=== PATIENT | female | born 1955 | race Caucasian/White ===

== ENCOUNTER 2017-04-16 17:05 | Emergency (ER) | payer OTHER ==
[~2017-04-16] VITALS: Ht 172.7 cm; Wt 73.6 kg
[~2017-04-16 17:05] MED LIST: ASCO500C PO; ASPI81TA82 PO; CIPR500T4 PO; CLOP75 PO; GABA100C4 PO; GLIP5TAB15 PO; LOPI600T PO; METF500 PO; OMEG306C PO; PENT400 PO; PENT400T19 PO; PLAV75TA PO; POTA550T4 PO; ROPI2TAB23 PO; ROPI4TAB PO; VITA250L PO; ZOFR4TAB3 SL
[2017-04-16 17:07] VITALS: BP 124/80; PULSE 121; RESP 16; TEMP 98.4; O2SAT 94
[2017-04-16] MEDS ORDERED: PLAV75TA29 PO (17:21)
[2017-04-16] MEDS ORDERED: GABA600T PO (17:21)
--- NOTE | 2017-04-16 17:27 | PD ---
HPI Chief Complaint: Fall Time Seen by Provider: 17:18 Travel History International Travel<30 days: No Contact w/Intl Traveler<30days: No Traveled to known affect area: No History of Present Illness HPI Patient comes emergency Department complaining of left knee pain status post slip and fall while at work shortly prior to arrival. Patient denies any direct trauma to the left knee and just feels as though it gave out on her when she fell landing on her bottom. Patient has not been able to apply pressure in her left leg since secondary to pain. Patient describes a sharp stabbing pain in her knee anterior aspect radiates to the back. Denies any numbness or tingling. Denies hitting her head, loss consciousness, or doing anything for this prior to coming to the emergency department. Moving her left extremity improves the pain. Moving it touching her knee, or trying to apply pressure makes the pain worse. PFSH Past Medical History Hx Anticoagulant Therapy: Yes (Plavix) Cancer: No Cardiac Catheterization: Yes Cardiovascular Problems: Yes (Stents BLE) Chest Pain: No COPD: Yes Coronary Artery Disease: Yes Diabetes: Yes Patient Takes Glucophage: No Diminished Hearing: No Deep Vein Thrombosis: Yes Gastrointestinal Disorders: No Glaucoma: Yes Hepatitis: No Hiatal Hernia: No Hypertension: No Respiratory: Yes (COPD) Integumentary: No Immunizations Current: No Thyroid Disease: No Influenza Vaccination: No ?: Not Menopausal: Yes Past Surgical History Cardiac Surgery: Yes (Fem-pop Bypass ) Section: Yes Coronary Stent: Yes Gynecologic Surgery: Yes (C- SECTION X 1 ) Thoracic Surgery: Yes Tonsillectomy: Yes Other Surgery: Yes (removal of cyst , facial reconstruction due to trauma ) Social History Alcohol Use: No Tobacco Use: Yes Substance Use: No Allergies-Medications (Allergen,Severity, Reaction): Coded Allergies: Sulfa (Sulfonamide Antibiotics) (Unverified Allergy, Severe, ITCHING, ) penicillin G (Unverified Allergy, Severe, ITCHING, 04/16/17) Reported Meds & Prescriptions Reported Meds & Active Scripts Active Gackle (Hydrocodone-Acetaminophen) 5 Mg-325 Mg Tab 1 Tab PO Q8HR PRN Reported Gabapentin 600 Mg Tab 600 Mg PO HS Plavix (Clopidogrel Bisulfate) 75 Mg Tab 75 Mg PO HS Review of Systems Except as stated in HPI: all other systems reviewed are Neg Physical Exam Narrative GENERAL: Well-developed, well nourished, in no acute distress, and non-ill appearing. SKIN: Focused skin assessment warm and dry. HEAD: Atraumatic. Normocephalic. EYES: Pupils equal and round. EOMI. No scleral icterus. No injection or drainage. ENT: No nasal bleeding or discharge. Mucous membranes pink and moist. NECK: Trachea midline. Supple. No nuclear rigidity. CARDIOVASCULAR: Dorsal pulses 2+, intact, equal bilaterally. Capillary refill less than 2 seconds. RESPIRATORY: No accessory muscle use. No respiratory distress. MUSCULOSKELETAL: No obvious deformities. No clubbing. No cyanosis. No edema. Decreased range of motion left lower extremity secondary to pain. Knee: Negative patellar apprehension, varus and valgus maneuvers, anterior draw test, and Lisa test. Pulses equal BL distal to injury. Capillary refill less than 2 seconds distal to injury and equal BL. FROM distal to injury and equal BL. Strength distal to injury equal BL. NV intact distal to injury. Dorsal pulses equal BL. Sensation equal BL 1st web space. Small joint effusion noted over anterior aspect of the left knee is tender to palpation. Patient reports point tenderness to left hip. No pain with passive motion of left hip. NEUROLOGICAL: Awake and alert. No obvious cranial nerve deficits. Motor grossly within normal limits. Normal speech. PSYCHIATRIC: Appropriate mood and affect; insight and judgment normal. Data Data Last Documented VS Vital Signs Date Time Temp Pulse Resp B/P (MAP) Pulse Ox O2 Delivery O2 Flow Rate FiO2 04/16/17 17:07 98.4 121 16 124/80 (95) 94 Orders Orders Hip, Uni(Ap&Lat) W Ap Pelvis (04/16/17 ) Knee, Complete (4vws) (04/16/17 ) Ice/Cold Pack (04/16/17 17:25) Acetamin-Hydrocod 325-5 Mg (Gackle 5-325 (04/16/17 17:30) Ct Knee W/O Contrast (04/16/17 ) Splint Or Brace Apply/Monitor (04/16/17 19:41) Crutches (04/16/17 20:00) Ed Discharge Order (04/16/17 20:05) Immobilizer Knee 20 Inch (04/16/17 ) MDM Medical Decision Making Medical Screen Exam Complete: Yes Emergency Medical Condition: Yes Interpretation(s) Last Impressions Lower Extremity CT 04/16/17 0000 Signed Impressions: Service Date/Time: Sunday, April 16, 2017 19:09 - CONCLUSION: Acute, minimally depressed/downsloping lateral tibial plateau fracture without significant focal step-off or incongruity. Moris Maldonado MD Knee X-Ray 04/16/17 0000 Signed Impressions: Service Date/Time: Sunday, April 16, 2017 18:09 - CONCLUSION: Possible slightly depressed lateral tibial plateau fracture. Otherwise intact left knee. Joint effusion present. Moris Maldonado MD Hip and Pelvis X-Ray 04/16/17 0000 Signed Impressions: Service Date/Time: Sunday, April 16, 2017 18:09 - CONCLUSION: Intact pelvis and left hip. Moris Maldonado MD Differential Diagnosis Fracture, strain, contusion, dislocation Narrative Course The patient sustained a fracture. The distal extremity appears neurovascularly intact, without evidence of neurovascular injury nor compartment syndrome. Tendon exam also was intact. The effected limb was splinted. The patient was discharged on pain medication along with fracture and splint care instructions and given warnings for vascular compromise. The patient is to follow up with Orthopedics. The patient agrees with plan. Patient in no obvious distress upon re-evaluation. All pertinent Radiology result(s) discussed with patient/family. Patient states she prefers crutches over a walker. Patient was asked if they wanted to speak to my attending, which the patient did not wish to do at this time. Any questions/concerns in reference to patient diagnosis/condition discussed and clarified prior to patient's discharge. Reinforced sheer importance of close follow up with patient 's Workmen's Comp. provider and/or orthopedics as well as to be nonweightbearing on her left lower extremity. Instructed patient to return to ED immediately, if symptoms return/worsen. Patient showed understanding of above instructions. Further instructions and recommendations were detailed in discharge paperwork. Patient left without difficulty out of ED at discharge. Physician Communication Physician Communication [address] Umanzor, orthopedic bridge ironworker recommends knee immobilizer, nonweightbearing, and outpatient follow-up. Diagnosis Primary Impression: Tibial plateau fracture, left Qualified Codes: S82.142A - Displaced bicondylar fracture of left tibia, initial encounter for closed fracture Referrals: Jose Umanzor MD Patient Instructions: Crutch Instructions (ED), General Instructions, Knee Immobilizer (DC), Leg Fracture (ED) Additional Instructions: Follow-up with your workmen's comp provider and orthopedic this week.. Take all medication as prescribed. Apply ice affected area 20 minutes per hour's needed for pain. Do not put any weight on your left lower extremity until cleared by the orthopedic. Immobilizer until cleared by orthopedic. Return to the emergency department if symptoms get worse. Med/Other Pt SpecificInfo: Prescription(s) given Scripts Hydrocodone-Acetaminophen (Gackle) 5 Mg-325 Mg Tab 1 TAB PO Q8HR Y for PAIN GREATER THAN 7, #12 TAB 0 Refills Prov: Raghav Anna MD 04/16/17 Disposition: 01 DISCHARGE HOME Condition: Stable Royce Medina Apr 16, 2017 17:27
[2017-04-16] MEDS ORDERED: ACETAMINOPHEN/HYDROcodone 325 MG/5 MG TAB PO ONE (17:30)
--- NOTE | 2017-04-16 18:26 | RADRPT ---
EXAM DATE/TIME: 04/16/2017 18:09 [facility] COMPARISON: No previous studies available for comparison. INDICATIONS : Left hip pain. Patient fell today. MEDICAL HISTORY : None. SURGICAL HISTORY : None. ENCOUNTER: Initial ACUITY: 1 day PAIN SCORE: 5/10 LOCATION: Left hip. FINDINGS: Examination of the left hip was performed with AP Pelvis. The primary and secondary trabecular patte rn of the femoral neck is intact. The hip joint is of normal width without significant sclerosis or bony hypertrophy. The acetabulum is grossly intact. There does appear to be some soft tissue swelling lateral to the greater trochanter. No radiopaque fo reign body demonstrated. CONCLUSION: Intact pelvis and left hip. Moris Maldonado MD on April 16, 2017 at 18:22 Board Certified Radiologist. This report was verified electronically.
--- NOTE | 2017-04-16 18:28 | RADRPT ---
EXAM DATE/TIME: 04/16/2017 18:09 [facility] COMPARISON: No previous studies available for comparison. INDICATIONS : Left hip pain. Patient fell today. MEDICAL HISTORY : None. SURGICAL HISTORY : None. ENCOUNTER: Initial ACUITY: 1 day PAIN SCORE: 8/10 LOCATION: Left knee. FINDINGS: A joint effusion is present. There is questionable slightly depressed fracture lateral tibial plateau . Otherwise, bones of the left knee appear intact. CONCLUSION: Possible slightly depressed lateral tibial plateau fracture. Otherwise intact left knee. Joint effusi on present. Moris Maldonado MD on April 16, 2017 at 18:24 Board Certified Radiologist. This report was verified electronically.
--- NOTE | 2017-04-16 19:37 | RADRPT ---
EXAM DATE/TIME: 04/16/2017 19:09 [facility] COMPARISON: KNEE LEFT COMPLETE (4VWS), April 16, 2017, 18:09. INDICATIONS : Fall. Left knee pain. Abnormal xray. RADIATION DOSE: 13.90 CTDIvol (mGy) MEDICAL HISTORY : None SURGICAL HISTORY : None. ENCOUNTER: Initial ACUITY: 1 day PAIN SCALE: 8/10 LOCATION: Left knee TECHNIQUE: Volumetric scanning of the knee was performed. Using automated exposure control and adjustment of th e mA and/or kV according to patient size, radiation dose was kept as low as reasonably achievable to obtain optimal diagnostic quality images. DICOM format image data is available electronically for re view and comparison. FINDINGS: The CT does confirm presence of an acute fracture of the lateral tibial plateau. This mainly involves the central to posterior weightbearing surface. There is very mild posterior downsloping but no sign ificant focal step-offs or incongruities. A moderate lipohemarthrosis is present. No other fractures are demonstrated. The CT suggests probable radial tears of the free edge of both the medial and lateral menisci bodies. CONCLUSION: Acute, minimally depressed/downsloping lateral tibial plateau fracture without significant focal step -off or incongruity. Moris Maldonado MD on April 16, 2017 at 19:32 Board Certified Radiologist. This report was verified electronically.
[2017-04-16] MEDS ORDERED: NORC5TAB PO (20:05)
== END 2017-04-16 20:38 | disposition home or self-care (01) ==
LOC: PHEFT 17:05
DX: S82.142A Displaced bicondylar fracture of left tibia, initial encounter for closed fracture (principal); E11.9 Type 2 diabetes mellitus without complications; Z72.0 Tobacco use; Z79.01 Long term (current) use of anticoagulants; Z87.09 Personal history of other diseases of the respiratory system; Z86.79 Personal history of other diseases of the circulatory system; Z86.718 Personal history of other venous thrombosis and embolism; W01.0XXA Fall on same level from slipping, tripping and stumbling without subsequent striking against object, initial encounter; Y99.0 Civilian activity done for income or pay
CPT/HCPCS: 73502; 73564; 73700; 99284; E0113; L1830